=== PATIENT | female | born 1970 | race Caucasian/White ===

== ENCOUNTER 2023-05-07 20:34 | Emergency (ER) | payer OTHER ==
[~2023-05-07] VITALS: Ht 170.2 cm; Wt 86.2 kg
[2023-05-07 20:45] VITALS: BP_SYST 187; PULSE 103; RESP 20; TEMP 98.2; O2SAT 94
[2023-05-07] MEDS ORDERED: HYDROcodone/ACETAMIN 5-325 MG TAB (NORCO/ VICODIN) PO ONE (20:45)
[2023-05-08] MEDS ORDERED: NS 1000 ML IV.SOLN IV ONE (00:45)
[2023-05-08] MEDS ORDERED: fentaNYL CITRATE/PF 100 MCG/2 ML AMP IM ONE (01:15)
[2023-05-08] MEDS ORDERED: HYDR-3917 PO (01:17)
[2023-05-08 01:50] VITALS: BP_SYST 165; PULSE 78; RESP 18; TEMP 98.1; O2SAT 96
== END 2023-05-08 01:50 | disposition home or self-care (01) ==
LOC: SED 20:34
DX: S92.312A Displaced fracture of first metatarsal bone, left foot, initial encounter for closed fracture (principal); E11.9 Type 2 diabetes mellitus without complications; I10 Essential (primary) hypertension; Z79.899 Other long term (current) drug therapy; X58.XXXA Exposure to other specified factors, initial encounter; Y93.41 Activity, dancing; Y92.89 Other specified places as the place of occurrence of the external cause; Y99.8 Other external cause status
CPT/HCPCS: 99284; 82962; 73610; 73630; 96372; J3010